=== PATIENT | male | born 1975 | race Two or more races ===

== ENCOUNTER 2023-11-15 09:28 | Day surgery (SDC) | payer OTHER ==
[2023-11-05 09:07] LABS: HEMATOCRIT 39.4 % (39.0-48.0); HEMOGLOBIN 13.1 g/dL (13-16.00); MEAN CORPUSCULAR HEMOGLOBIN 27.2 pg (27.00-32.0); MEAN CORPUSCULAR HGB CONC 33.2 g/dl (32.0-36.0); PLATELET COUNT 252 K/uL (150-450); RED BLOOD COUNT 4.81 M/uL (4.00-6.00); RED CELL DISTRIBUTION WIDTH 14.3 % (11.5-14.5)
[2023-11-05 09:15] LABS: URINE APPEARANCE Clear; URINE BILIRRUBIN Negative (NEGATIVE); URINE BLOOD Negative; URINE COLOR Yellow; URINE GLUCOSE Negative (NEGATIVE); URINE LEUKOCYTE Negative; URINE NITRATE Negative; URINE PROTEIN Negative (NEGATIVE); URINE UROBILINOGEN 0.2 E.U./dl
[2023-11-05 09:20] LABS: URINE BACTERIA 8.8 uL (0.0-1933); URINE EPITHELIAL CELLS 4.1 uL (0.0-38.8); URINE WBC 2.7 uL (0.0-23.2)
[2023-11-05 09:22] LABS: URINE RBC 0.5 uL (0.0-20.8)
[2023-11-05 09:39] LABS: INR 0.97; PARTIAL THROMBOPLASTIN TIME 28.7 SECONDS (22.0-34.0); PROTHROMBIN TIME 10.2 SECONDS (9.0-11.5)
[2023-11-05 09:45] LABS: ALBUMIN 3.5 gm/dL (3.4-5.0); BILIRUBIN TOTAL 0.37 mg/dL (0.3-1.2); CALCIUM 9.2 mg/dL (8.5-10.1); CREATININE SERUM 0.87 mg/dL (0.70-1.30); GFR 93.26; GLOBULINA 3.6 G/DL (2.4-3.5); POTASSIUM 4.27 mEq/L (3.5-5.1); TOTAL PROTEIN 7.1 gm/dL (6.4-8.2)
[2023-11-15] MEDS ORDERED: KETO10TA2 PO (16:12)
[2023-11-15] MEDS ORDERED: TRAMADOL HCL50 MG PO (16:12)
[2023-11-15] MEDS ORDERED: TYLENOL ARTHRI650 MG PO (16:12)
[2023-11-15] MEDS ORDERED: MIRALAX17 GM PO (16:12)
[2023-11-15] MEDS ORDERED: NEURONTIN300 MG PO (16:12)
== END 2023-11-15 20:50 | disposition home or self-care (01) ==
LOC: CIR.AMB 09:28
PROVIDERS: ATTEND Surgery
DX: K43.6 Other and unspecified ventral hernia with obstruction, without gangrene (principal)
CPT/HCPCS: 49594; C1781